=== PATIENT | female | born 1980 | race Caucasian/White ===

== ENCOUNTER 2016-10-16 08:19 | Inpatient (IN) | payer BC ==
--- OUTSIDE RECORDS SUMMARY | 2016-10-16 08:23 | XMS REPORT | Continuity of Care Document ---
:1980 Author Organization [facility] ([facility]) Address [address] [place] [address] Phone [phone] Care Team Providers Name Role Phone Provider, No-Primary Care Primary Care Provider Unavailable Source Comments This disclosure is being made pursuant to the Care Everywhere program, applicable federal and state laws, and may not contain all informaitonavailable regarding this patient.[facility] ([facility]) Active Allergies and Adverse Reactions Allergen Noted Date Severity Reactions Comments Sulfa (Sulfonamide Antibiotics) 01/06/2015 Nausea & Vomiting Current Medications Prescription Sig. Disp. Refills Start Date End Date Status VIT W-CA,FE,FA(<1 Active MG) ( VITAMIN PO) aspirin 81 mg chewable Take 81 mg by Active tablet mouth daily. Active Problems Problem Noted Date Short cervix during in third trimester 03/31/2015 Currently Estimated Date of Delivery Comments Yes 10/22/2016 Based on Ultrasound Social History Tobacco Use Types Packs/Day Years Used Date Former Smoker Cigarettes Quit: 08/06/2014 Smokeless Tobacco: Never Used Alcohol Use Drinks/Week oz/Week Comments No 0 Standard drinks or equivalent 0.0 Last Filed Vital Signs Vital Sign Reading Time Taken Blood Pressure 110/61 04/11/2016 10:26 AM FAMILY DAY CARE PROVIDER Pulse 62 04/11/2016 10:26 AM FAMILY DAY CARE PROVIDER Temperature 34.8 C (94.6 F) 01/06/2015 9:03 AM CDT Respiratory Rate - - Height 1.727 m (5' 8") 04/11/2016 10:26 AM FAMILY DAY CARE PROVIDER Weight 77.7 kg (171 lb 4.8 oz) 04/11/2016 10:26 AM FAMILY DAY CARE PROVIDER Body Mass Index 26.05 04/11/2016 10:26 AM FAMILY DAY CARE PROVIDER Oxygen Saturation - - Plan of Care Health Maintenance Due Date Last Done Comments Hepatitis B Vaccine (1 of 3 - Primary Series) 1980 Tdap Vaccine 1989 Lipid Disorder Screening 1996 MMR Vaccine 1996 Td Vaccine 1996 Cervical Cancer Screening 2008 Influenza Vaccine: Seasonal (#1) 11/29/2015 Results from Last 3 Months Not on file
--- NOTE | 2016-10-16 08:53 | PN ---
Progess Note - Interim Narrative: 10/16/16 08:48 Patient not feeling contractions Vital signs stable. Fasting blood sugar 89 FHT: 135 baseline, reassuring Contractions q 10-15 min Cervix: 5/90/-2 with possible umbilical cord at the edge of cervix Impression: Intrauterine at 39 weeks induction of labor for gestational diabetes and advanced maternal age Plan: Discussed implications of presence of cord in front of the head, risk of cord prolapse and need for emergency section. Preparations made for section. OR notified and preparing for possible emergency section. Once an OR room is available will reassess the cervix to see if cord has reduced.
[2016-10-16] MEDS ORDERED: ONDANSETRON HCL/PF 2 MG/ML VIAL IV PRN ×2 (09:10→09:12)
[2016-10-16] MEDS ORDERED: NALOXONE HCL 1 MG/1 ML SYRG IV PRN (09:10)
[2016-10-16] MEDS ORDERED: BUPIVACAINE HCL/0.9 % NACL/PF 250 ML EP PRN (09:10)
[2016-10-16] MEDS ORDERED: DEXTROSE 5%-LACTATED RINGERS 1,000 ML IV PRN (09:12)
[2016-10-16] MEDS ORDERED: LIDOCAINE HCL 50 ML VIAL PERI PRN (09:12)
[2016-10-16] MEDS ORDERED: INSULIN REGULAR HUMAN REC 100 UNITS in NORMAL SALINE 100 ML IV PRN (09:12)
[2016-10-16] MEDS ORDERED: RINGERS SOLUTION,LACTATED 1,000 ML IV ONE (09:12)
[2016-10-16] MEDS ORDERED: OXYTOCIN/DEXTROSE 5%-WATER 30 UNITS/500 ML BAG IV ONE ×2 (09:12→13:10)
[2016-10-16] MEDS ORDERED: fentaNYL CITRATE/PF 50 MCG/ML AMPUL IT SCH (09:15)
--- NOTE | 2016-10-16 09:36 | OR ---
Anesthesia Pre Procedure Eval Date of Service: 10/16/16 Pre Procedure Evaluation: Anesthesia Pre Procedure Evaluation Heart Rate:65 Blood Pressure:151/95 Termperature:36.5 Respiratory Rate:96 SaO2:97 DATE: 10/16/2016 TIME: 01 12 INDICATIONS: Active labor, labor pain PAST MEDICAL HISTORY: Multipara patient at 4 cm dilatation requesting labor analgesia EXAM: Heart regular; lungs clear ASSESSMENT OF MEDICAL STATUS: Appropriate candidate for labor analgesia PLANNED PROCEDURE: Combination spinal epidural for labor analgesia Home Medications: HOME MEDICATIONS Aspirin [Lo-Dose Aspirin EC] 81 mg PO DAILY 10/16/16 [Last Taken 10/14/16 21:00] Vit#96/Ferrous Fum/FA [ S] 1 tab PO DAILY 10/16/16 [Last Taken 10/14/16 08:00] metFORMIN HCL [Glucophage] 1,500 mg PO HS 10/16/16 [Last Taken 10/14/16 21:00]
--- NOTE | 2016-10-16 09:38 | OR ---
Anesthesia Procedure Note - Anesthesia Procedure Note Date of Service: 10/16/16 Narrative: 10/16/16 09:36 ANESTHESIA PROCEDURE NOTE Date of Procedure: 10/16/2016 Time of procedure: 01 12. Performed by: WAYNE Gill CRNA, MSN Track Patrol: Clarice Burkett RN. Preprocedure diagnosis: Active labor, labor pain. Post procedure diagnosis: Same. Procedure: Labor Epidural Placement L45. Indications: Labor pain. Findings: See below. Details of the procedure: The patient was placed on the side of the bed in sitting position. The patient was prepped with DuraPrep and draped in a sterile fashion. Lidocaine 1% was infiltrated to the skin and subcutaneous tissues at the level of the L4 5 interspace. The epidural space was identified using a 18-gauge Tuohy needle with [id number] technique. Fentanyl 20 mcg was given intrathecally the intrathecal needle was then removed and the epidural catheter was threaded approximately 4 cm, the epidural needle was then removed, and after careful aspiration 3 mL of 1.5% lidocaine with 1-200,000 epinephrine was injected without change in maternal heart rate or sensorium. The catheter was then taped in place. EBL: Minimal. Fluids: N/A. Specimen: N/A. Post procedure condition: The patient tolerated the procedure well with good relief. No complications were noted. Thank you for this consultation. Delfino Graham CRNA, ARNP, MSN
[2016-10-16] MEDS ORDERED: oxyCODONE HCL/ACETAMINOPHEN 1 TAB TABLET PO PRN ×2 (13:10)
[2016-10-16] MEDS ORDERED: SENNOSIDES 8.6 MG TABLET PO PRN (13:10)
[2016-10-16] MEDS ORDERED: HYDROCORTISONE 30 APPL TUBE TP PRN (13:10)
[2016-10-16] MEDS ORDERED: BENZOCAINE/MENTHOL 81 SPRAY CAN TP PRN (13:10)
[2016-10-16] MEDS ORDERED: BISACODYL 10 MG SUPP.RECT RC PRN (13:10)
[2016-10-16] MEDS ORDERED: GLYCERIN/WITCH HAZEL LEAF 40 APPL BOX TP PRN (13:10)
--- NOTE | 2016-10-16 13:13 | OR ---
Operative Report - Dictated Report Narrative: Spontaneous vaginal delivery of viable female at 1227 with Apgars 8 and 9, weighing 3005 g in MATTHIAS position. Cord clamping delayed approximately 1 minute Placenta delivered via manual extraction with 3 vessel cord; appears all intact Estimated blood loss: 100 mL Lacerations: None History for MU Definition: * The number of deliveries resulting in a live the patient experienced prior to current hospitalization * The previous delivery of live twins or any live multiple gestation is considered one live event. *If primagravida or nulliparous is documented select zero for the number of previous live births. Live Events: 1
[2016-10-16] MEDS: DOCUSATE SODIUM 100 MG CAPSULE PO SCH (21:23)
[2016-10-17] MEDS: IBUPROFEN 800 MG TABLET PO PRN (00:40)
--- NOTE | 2016-10-17 08:54 | PN ---
Subjective - Date and Time Seen Date: 10/17/16 Time: 08:53 Objective - Vitals Vitals: Last Vital Signs Temp 36.4 C L 10/17/16 08:13 Pulse 75 10/17/16 08:13 Resp 18 10/17/16 08:13 BP 118/82 10/17/16 08:13 Pulse Ox 97 10/17/16 08:13 Patient denies complaints. Fasting blood sugar 77, one-hour postprandial blood sugar pending. Lochia wnl Abdomen - soft, nontender Uterus - firm, at umbilicus - 1 No calf tenderness Impression: day #1 - s/p spontaneous vaginal delivery. Gestational diabetes-improving. Retained placenta with manual extraction-no evidence of retained products at this time. Plan: Continue routine care Cauti Physician Documentation - Urinary Catheter Management Urethral ([place]se) Date of Insertion: 10/16/16 Time of Insertion: 09:30
[2016-10-17] MEDS: DOCUSATE SODIUM 100 MG CAPSULE PO SCH ×2 (09:27→20:33)
[2016-10-17] MEDS: PRENATAL VIT#96/FERROUS FUM/FA 1 TAB TABLET PO SCH (09:27)
[2016-10-18] MEDS: IBUPROFEN 800 MG TABLET PO PRN (09:16)
[2016-10-18] MEDS: PRENATAL VIT#96/FERROUS FUM/FA 1 TAB TABLET PO SCH (09:16)
[2016-10-18] MEDS: DOCUSATE SODIUM 100 MG CAPSULE PO SCH (09:16)
[2016-10-18 09:50] VITALS: BP 125/78
--- NOTE | 2016-10-18 12:59 | PN ---
Subjective - Date and Time Seen Date: 10/18/16 Time: 12:58 Objective - Vitals Vitals: Last Vital Signs Temp 36.6 C 10/18/16 09:45 Pulse 70 10/18/16 09:45 Resp 16 10/18/16 09:45 BP 125/78 10/18/16 09:45 Pulse Ox 97 10/18/16 09:45 Patient denies complaints. Lochia wnl Abdomen - soft, nontender Uterus - firm, at umbilicus - 2 No calf tenderness Impression: day #2 - s/p spontaneous vaginal delivery. Gestational diabetes-medication dependent-resolving. Advanced maternal age. Plan: Routine discharge instructions. Patient to check a fasting blood sugar and 1 hour postprandial the day before or of her visit. Cauti Physician Documentation - Urinary Catheter Management Urethral ([place]se) Date of Insertion: 10/16/16 Time of Insertion: 09:30
== END 2016-10-18 14:46 | disposition home or self-care (01) | DRG 774 ==
LOC: OB 08:19
PROVIDERS: ADMIT Obstetrics & Gynecology; ATTEND Obstetrics & Gynecology
PROC: 10E0XZZ Delivery of Products of Conception, External Approach (ICD-10-PCS; principal; 2016-10-16)
PROC: 4A1HXCZ Monitoring of Products of Conception, Cardiac Rate, External Approach (ICD-10-PCS; 2016-10-16)
PROC: 3E033VJ Introduction of Other Hormone into Peripheral Vein, Percutaneous Approach (ICD-10-PCS; 2016-10-16)
PROC: 3E0S3CZ (ICD-10-PCS; 2016-10-16)
DX: O24.425 Gestational diabetes mellitus in childbirth, controlled by oral hypoglycemic drugs (principal); O72.2 Delayed and secondary postpartum hemorrhage; O09.513 Supervision of elderly primigravida, third trimester; Z3A.39 39 weeks gestation of pregnancy; Z37.0 Single live birth